=== PATIENT | female | born 1975 | race Caucasian/White ===

== ENCOUNTER 2017-07-30 20:40 | Emergency (ER) | payer MEDICAID ==
[~2017-07-30] VITALS: Ht 172.7 cm; Wt 78.1 kg
[~2017-07-30 20:40] MED LIST: NITR100C56 PO; OXYC-302 PO; SULF1TAB24 PO; TRAM100T13 PO
[2017-07-30] MEDS ORDERED: ONDANSETRON 2MG/ML, 2ML IVPush ONE (21:00)
[2017-07-30] MEDS ORDERED: SODIUM CHLORIDE FLUSH 10ML SYR IVF ONE (21:00)
[2017-07-30] MEDS ORDERED: SODIUM CHLORIDE 0.9% 1,000ML IVBOLUS ONE (21:00)
[2017-07-30] MEDS ORDERED: morphine SULFATE 10 MG/ML, 1ML ONE ×2 (21:01→22:43)
[2017-07-30] MEDS ORDERED: ONDANSETRON 2MG/ML, 2ML ONE (21:01)
[2017-07-30] MEDS: MORPHINE SULFATE 4 MG/ML, 1ML IVPush PRN ×2 (21:17→22:55)
[2017-07-30 21:25] LABS: HEMATOCRIT 42.5 % (34.6-47.8); HEMOGLOBIN 14.6 g/dL (11.7-16.4); WHITE BLOOD COUNT 10.7 x10^3/uL (3.4-10)
[2017-07-30 21:35] LABS: ASPARTATE AMINO TRANSFERASE 12 U/L (15-37); BLOOD UREA NITROGEN 8 mg/dL (7-18)
[2017-07-30] MEDS ORDERED: OMNIPAQUE 350 MG/ML, 100ML BOTTLE ONE (21:54)
[2017-07-30 22:57] VITALS: BP 126/74
[2017-07-31] MEDS ORDERED: KETOROLAC 30 MG/1 ML ONE (00:26)
[2017-07-31] MEDS ORDERED: KETOROLAC 30 MG/1 ML IVPush ONE (00:30)
== END 2017-07-31 01:06 | disposition home or self-care (01) ==
LOC: ED 23:59
DX: D35.02 Benign neoplasm of left adrenal gland (principal); D35.01 Benign neoplasm of right adrenal gland; N83.202 Unspecified ovarian cyst, left side; F17.200 Nicotine dependence, unspecified, uncomplicated; E78.5 Hyperlipidemia, unspecified; Z90.710 Acquired absence of both cervix and uterus
CPT/HCPCS: 36415; 74177; 76830; 80053; 81001; 83690; 84703; 85025; 87086; 96374; 96375; 96376; 99285; J1885; J2405; J7030; Q9967

== ENCOUNTER 2020-07-17 07:52 | Emergency (ER) | payer MEDICAID ==
[~2020-07-17] VITALS: Ht 172.7 cm; Wt 87.5 kg
--- NOTE | 2020-07-17 08:45 | NUR ---
right lower quadrant and right groin pain since Friday. Feels bloated, diarrhea and nausea.
[2020-07-17] MEDS ORDERED: ONDANSETRON 2MG/ML, 2ML ONE (08:47)
[2020-07-17] MEDS ORDERED: HYDROmorphone 1 MG/ML, 1ML INJ ONE ×2 (08:47→09:43)
[2020-07-17] MEDS: HYDROmorphone 2 MG/ML, 1ML IVPush PRN ×2 (08:48→09:52)
--- NOTE | 2020-07-17 08:56 | NUR ---
PT IMMEDIATELY FELT RELIEF OF PAIN WITH MEDICATION. AWAITING CT
[2020-07-17] MEDS ORDERED: SODIUM CHLORIDE FLUSH 10ML SYR IVF ONE (09:00)
[2020-07-17] MEDS ORDERED: ONDANSETRON 2MG/ML, 2ML IVPush ONE (09:00)
[2020-07-17 09:03] LABS: BASOPHILS % (AUTO) 1 % (0-1); EOSINOPHILS % (AUTO) 1 % (1-7); LYMPHOCYTES % (AUTO) 27 % (22-44); MEAN CORPUSCULAR HGB CONC 34.1 g/dL (32.4-35.8); MEAN PLATELET VOLUME 10.2 fL (7.4-10.4); MONOCYTES % (AUTO) 7 % (2-9); NEUTROPHILS % (AUTO) 65 % (42-75); PLATELET COUNT 203 x10^3/uL (130-400); RED BLOOD COUNT 4.18 x10^6/uL (3.82-5.3); RED CELL DISTRIBUTION WIDTH 14.1 % (9.6-15.2)
[2020-07-17 09:10] LABS: ALBUMIN 3.6 g/dL (3.4-5.0); ANION GAP 5 mmol/L (5-15); CALCIUM 8.6 mg/dL (8.5-10.1); CHLORIDE 113 mmol/L (98-107)
[2020-07-17 09:13] LABS: ALANINE AMINOTRANSFERASE 22 U/L (12-78); ALKALINE PHOSPHATASE 111 U/L (45-117); BILIRUBIN,TOTAL 0.4 mg/dL (0.2-1.0); CREATININE 0.82 mg/dL (0.55-1.02); TOTAL PROTEIN 6.9 g/dL (6.4-8.2)
[2020-07-17] MEDS ORDERED: OMNIPAQUE 350 MG/ML, 100ML BOTTLE ONE (09:35)
--- NOTE | 2020-07-17 09:40 | NUR ---
PT AMBULATED TO BR WITH A STEADY GAIT. UA OBTAINED AND SENT TO LAB.
[2020-07-17 09:57] LABS: MD MORPH REVIEW ONLY
[2020-07-17 09:58] LABS: <PLATELET ESTIMATE> ADEQUATE; LARGE PLATELETS 1+
[2020-07-17 10:14] LABS: MICROSCOPIC AUTO
[2020-07-17] MEDS ORDERED: KETOROLAC 30 MG/1 ML IVPush ONE (12:27)
[2020-07-17] MEDS ORDERED: LORazepam 2 MG/ML, 1ML IVPush ONE (12:30)
[2020-07-17] MEDS ORDERED: LORazepam 2 MG/ML, 1ML ONE (12:38)
[2020-07-17] MEDS ORDERED: KETOROLAC 30 MG/1 ML ONE (12:38)
--- NOTE | 2020-07-17 13:15 | NUR ---
PT OXYGEN SATURATION DOWN TO HIGH 70'S ON RA. OXYGEN SAT COMES UP WHEN SHE AWAKES AND TALKS. PT THEN BACK TO SLEEP AND DESATS AGAIN. PLACED ON OXYGEN NC
[2020-07-17 13:58] VITALS: BP 126/75
--- NOTE | 2020-07-17 13:59 | NUR ---
PT AMBULATED TO DC DESK WITH A STEADY GAIT.
== END 2020-07-17 14:01 | disposition home or self-care (01) ==
LOC: ED 08:31
DX: R10.31 Right lower quadrant pain (principal); R19.7 Diarrhea, unspecified; E78.5 Hyperlipidemia, unspecified
CPT/HCPCS: 36415; 74177; 76830; 80053; 81001; 85025; 87086; 96374; 96375; 96376; 99285; J1170; J1885; J2060; J2405; Q9967